=== PATIENT | male | born 1955 | race Caucasian/White ===

== ENCOUNTER 2018-03-20 11:55 | Inpatient (IN) | payer OTHER ==
[2018-03-20] MEDS ORDERED: NS 1000 ML 1,000 ML ONE (12:13)
[2018-03-20] MEDS ORDERED: MORPHINE SULFATE INJ 2 MG INJ IVP PRN (12:18)
[2018-03-20] MEDS ORDERED: CARDIZEM INJ 125 MG VIAL 125 MG in NS 100 ML IV 100 ML IV PRN (12:20)
[2018-03-20] MEDS ORDERED: HEPARIN SODIUM INJ 5000 UNITS ONE (12:33)
[2018-03-20] MEDS: HEPARIN SODIUM IN D5W 25,000 UNITS/500 ML BAG IV PRN (12:35)
[2018-03-20] MEDS ORDERED: HumuLIN R ONE (12:51)
[2018-03-20] MEDS: LOPRESSOR INJ 5 MG AMP IVP ONE ×4 (12:55→13:25)
[2018-03-20] MEDS ORDERED: LOPRESSOR INJ 5 MG AMP ONE (12:55)
[2018-03-20 12:57] LABS: BASOPHILS # (AUTO) 0.2 X10^3/uL (0.0-0.1); BASOPHILS % (AUTO) 2.9 % (0.2-1.0); EOSINOPHILS # (AUTO) 0.1 x10^3/uL (0.0-0.2); EOSINOPHILS % (AUTO) 1.3 % (0.9-2.9); HEMATOCRIT 42.4 % (42.0-54.0); HEMOGLOBIN 14.5 g/dL (13.5-18.0); LYMPHOCYTES # (AUTO) 1.8 X10^3/uL (1.3-2.9); LYMPHOCYTES % (AUTO) 28.2 % (21.0-51.0); MEAN CORPUSCULAR HEMOGLOBIN 29.9 pg (27.0-34.0); MEAN CORPUSCULAR HGB CONC 34.1 g/dL (33.0-35.0); MEAN CORPUSCULAR VOLUME 87.8 fL (80.0-100.0); MEAN PLATELET VOLUME 9.3 fL (7.4-11.0); MONOCYTES # (AUTO) 0.4 x10^3/uL (0.3-0.8); MONOCYTES % (AUTO) 6.7 % (0.0-13.0); NEUTROPHILS # (AUTO) 3.9 x10^3/uL (2.2-4.8); NEUTROPHILS % (AUTO) 60.9 % (42.0-75.0); PLATELET COUNT 183 X10^3/uL (150.0-450.0); RED BLOOD COUNT 4.83 X10^6/uL (4.7-6.0); RED CELL DISTRIBUTION WIDTH 13.5 % (11.6-16.5); WHITE BLOOD COUNT 6.4 X10^3/uL (3.6-10.0)
--- NOTE | 2018-03-20 13:04 | RAD ---
HISTORY: Shortness of breath and palpitations. Study: Portable chest. Comparison: None. Findings: The trachea is midline. The cardiac silhouette is unremarkable. No obvious focal consolidation, ple ural effusion, or pneumothorax. The bony thorax is unremarkable. IMPRESSION: No acute cardiopulmonary disease. Reported By:
[2018-03-20 13:08] LABS: ALANINE AMINOTRANSFERASE 20 Units/L (12-78); ALBUMIN 3.7 g/dL (3.4-5.0); ALKALINE PHOSPHATASE 89 Units/L (46-116); ASPARTATE AMINO TRANSFERASE 11 Units/L (15-37); BLOOD UREA NITROGEN 18 mg/dL (7-18); CALCIUM 8.1 mg/dL (8.5-10.1); CARBON DIOXIDE 25.1 mmol/L (21-32); CHLORIDE 109 mmol/L (98-107); CREATININE 1.22 mg/dL (0.70-1.30); SODIUM 144 mmol/L (136-145); TOTAL PROTEIN 6.9 g/dL (6.4-8.2); eGFR BLACK RACES > 60 (>60); eGFR NON BLACK RACES > 60 (>60)
[2018-03-20 13:09] VITALS: BMI 35.6
[2018-03-20 13:16] LABS: CKMB % 1.5 % (<4); CREATINE KINASE 68 Units/L (39-308); FREE T4 (FREE THYROXINE) 1.06 ng/dL (0.76-1.46); TROPONIN I < 0.02 ng/mL (0-1.5); TSH (3RD GENERATION) 2.716 uIU/mL (0.358-3.74)
--- NOTE | 2018-03-20 13:46 | DR.H&P ---
H&P - History & Physical for Day of: H&P Date: 03/20/18 - Chief Complaint Chief Complaint: palpitations, sob, near syncope - Allergies Allergies/Adverse Reactions: Allergies Allergy/AdvReac Type Severity Reaction Status Date / Time No Known Drug Allergies Allergy Verified 03/20/18 12:18 [NKDA] - History of Present Illness History of Present Illness: PT IS 62 WM DIRECT ADMIT FROM DR BALDWIN OFFICE AFTER PRESENTING WITH CO ELEVATED BP, PALPITATIONS AND NEAR SYNCOPE EPISODE. PT STATES SEVERAL DAYS AGO PT HAD SEVERE CENTRAL CHEST PAIN AND EPIGASTRIC PAIN "FELT LIKE SOMETHING SQUEEZING, PUT PRESSURE IN BOTH SIDES OF MY NECK AND I GRABBED A NEARBY TREE TO KEEP FROM FALL". PT FELT LIKE PALPITATIONS WAS STRESS AND ANXIETY RELATED. PT HAS PMH OF HTN, ERIN, MDD, AND OA. PT HAD EKG IN OFFICE WITH 2:1 AFLUTTER WITH RVR. PT WAS HYPERTENSIVE IN OFFICE. PT ADMITTED TO ICU FOR RATE CONTROL AND ANTICOAG THERAPY, DISCUSSED TRANSFER TO CARDIAC CATH. - Past Medical History Past Medical History: Anxiety, Arthritis, Hypertension - Past Surgical History Surgical History: Ortho Surgery, Other - Family History Family Medical History: ME, Hypertension - Social History Does patient currently use any type of tobacco product: No Have you used tobacco products in the last 12 months: No Type of Tobacco Use: None Does any household member use tobacco: No Alcohol Use: None Drug Use: None - Review of Systems Constitutional: Weakness Eyes: No Symptoms Reported ENT: No Symptoms Reported Respiratory: SOB with Excertion Cardiovascular: Palpitations, Edema, Light Headedness Genitourinary: No Symptoms Reported Musculoskeletal: Back Pain, Leg Pain Skin: No Symptoms Reported Neurological: Weakness - Physical Exam Vital Signs: Temperature 99.5 F Pulse Rate [Left Brachial] 130 Respiratory Rate 18 Blood Pressure [Right Arm] 140/110 Blood Pressure 159/103 O2 Sat by Pulse Oximetry 96 Oriented: Normal Eyes: Normal Ear: Normal Nose: Normal Throat: Normal Respiratory: Clear Throughout Cardiovascular: Tachycardia, Edema : Normal Auscultation: Bowel Sounds: Normal Palpation: Normal Tenderness: Normal Skin: Diaphoresis (MILDLY) Musculoskeletal: Right, Left, Knee, Back:Thoracic, Back:Lumbar Psychiatric: Anxiety Affect: Anxious Speech Pattern: Clear, Appropriate - Assessment/Plan (1) New onset atrial flutter Status: Acute Plan: ADMIT ICU, SERIAL CE'S EKG. RATE CONTROL, IV HEPARIN. BP MONITORING, SUPPLEMENTAL O2. CXR ON ADMISSION. VERIFY HOME MEDS, UA (2) New onset left bundle branch block (LBBB) Status: Acute (3) SOB (shortness of breath) Status: Acute (4) Hypertension Status: Acute (5) Anxiety Status: Acute (6) Arthritis Status: Acute
[2018-03-20] MEDS ORDERED: LOPRESSOR TAB 25 MG ONE (13:56)
[2018-03-20] MEDS: PROTONIX INJ 40 MG VIAL IVP SCH (14:00)
[2018-03-20] MEDS ORDERED: LOPRESSOR TAB 25 MG PO SCH (14:00)
[2018-03-20 17:17] LABS: BILIRUBIN,URINE NEGATIVE (NEGATIVE); BLOOD/HEMOGLOBIN,URINE NEGATIVE (NEGATIVE); GLUCOSE, URINE NEGATIVE (NEGATIVE); KETONES,URINE NEGATIVE (NEGATIVE); LEUKOCYTE ESTERASE ,URINE NEGATIVE (NEGATIVE); NITRITES,URINE NEGATIVE (NEGATIVE); PROTEIN,URINE NEGATIVE (NEGATIVE); UROBILINOGEN,URINE NORMAL (NORMAL)
[2018-03-20 17:21] LABS: APPEARANCE,URINE CLEAR (CLEAR); COLOR,URINE YELLOW (YELLOW)
[2018-03-20 18:36] LABS: CKMB % 1.8 % (<4); CREATINE KINASE 55 Units/L (39-308); CREATINE KINASE MB < 1.0 ng/mL (0-4.0); TROPONIN I < 0.02 ng/mL (0-1.5)
[2018-03-20] MEDS ORDERED: ATIVAN TAB 0.5 MG PO PRN (20:32)
[2018-03-20] MEDS ORDERED: NEXTERONE IV 150 MG PREMIX* 150 MG/100 ML BAG IV ONE (20:40)
[2018-03-20] MEDS ORDERED: NEXTERONE IV 360 MG PREMIX* 360 MG/200 ML BAG IV PRN (20:49)
[2018-03-20] MEDS ORDERED: DRUG FILTER EXTENSION SET ONE (21:12)
[2018-03-20] MEDS: LOPRESSOR TAB 50 MG PO SCH (21:30)
[2018-03-20] MEDS: CARDIZEM TAB 30 MG PLAIN PO SCH (21:50)
[2018-03-21 00:41] LABS: CREATINE KINASE 50 Units/L (39-308); CREATINE KINASE MB < 1.0 ng/mL (0-4.0); TROPONIN I < 0.02 ng/mL (0-1.5)
[2018-03-21] MEDS ORDERED: NEXTERONE IV 360 MG PREMIX* 360 MG/200 ML BAG IV PRN (02:49)
[2018-03-21] MEDS ORDERED: TYLENOL 325 MG TAB PO PRN (04:33)
[2018-03-21 04:40] LABS: ALANINE AMINOTRANSFERASE 17 Units/L (12-78); ALBUMIN 3.1 g/dL (3.4-5.0); ALKALINE PHOSPHATASE 77 Units/L (46-116); ASPARTATE AMINO TRANSFERASE 10 Units/L (15-37); BLOOD UREA NITROGEN 16 mg/dL (7-18); CALCIUM 7.6 mg/dL (8.5-10.1); CARBON DIOXIDE 26.7 mmol/L (21-32); CHLORIDE 107 mmol/L (98-107); CHOL/HDL RATIO 4.1 (0.0-5.0); CHOLESTEROL 120 mg/dL (0-200); COR CA(FOR HYPOALB) 8.3 mg/dL (8.5-10.1); CREATININE 1.29 mg/dL (0.70-1.30); HDL CHOLESTEROL 29 mg/dL (40-60); SODIUM 142 mmol/L (136-145); TRIGLYCERIDES 106 mg/dL (0-150); eGFR BLACK RACES > 60 (>60); eGFR NON BLACK RACES > 60 (>60)
[2018-03-21] MEDS: HEPARIN SODIUM IN D5W 25,000 UNITS/500 ML BAG IV PRN (04:44)
[2018-03-21 04:45] LABS: BASOPHILS # (AUTO) 0.2 X10^3/uL (0.0-0.1); BASOPHILS % (AUTO) 2.5 % (0.2-1.0); EOSINOPHILS # (AUTO) 0.2 x10^3/uL (0.0-0.2); EOSINOPHILS % (AUTO) 2.8 % (0.9-2.9); HEMATOCRIT 40.6 % (42.0-54.0); HEMOGLOBIN 13.8 g/dL (13.5-18.0); LYMPHOCYTES # (AUTO) 2.2 X10^3/uL (1.3-2.9); LYMPHOCYTES % (AUTO) 32.3 % (21.0-51.0); MEAN CORPUSCULAR HGB CONC 34.1 g/dL (33.0-35.0); MEAN PLATELET VOLUME 9.8 fL (7.4-11.0); MONOCYTES # (AUTO) 0.4 x10^3/uL (0.3-0.8); MONOCYTES % (AUTO) 6.2 % (0.0-13.0); NEUTROPHILS # (AUTO) 3.8 x10^3/uL (2.2-4.8); NEUTROPHILS % (AUTO) 56.2 % (42.0-75.0); PLATELET COUNT 183 X10^3/uL (150.0-450.0); RED BLOOD COUNT 4.61 X10^6/uL (4.7-6.0); RED CELL DISTRIBUTION WIDTH 13.2 % (11.6-16.5); WHITE BLOOD COUNT 6.8 X10^3/uL (3.6-10.0)
[2018-03-21] MEDS: CARDIZEM TAB 30 MG PLAIN PO SCH (06:48)
[2018-03-21] MEDS: LOPRESSOR TAB 50 MG PO SCH (08:19)
[2018-03-21] MEDS: PROTONIX INJ 40 MG VIAL IVP SCH (08:20)
[2018-03-21] MEDS ORDERED: COZAAR PO SCH (09:00)
[2018-03-21 10:15] VITALS: BP 123/78
== END 2018-03-21 10:44 | disposition short-term general hospital (02) | DRG 313 ==
LOC: EDBD 11:55 → ICU 11:55 → UNDOADMOB 11:55 → OBSVTOIN 12:00 → ICU 12:00
PROVIDERS: ADMIT Internal Medicine; ATTEND Internal Medicine
DX: R07.89 Other chest pain (principal); I44.7 Left bundle-branch block, unspecified; I48.92 Unspecified atrial flutter; R55 Syncope and collapse; I10 Essential (primary) hypertension; F41.8 Other specified anxiety disorders; M19.90 Unspecified osteoarthritis, unspecified site; Z79.01 Long term (current) use of anticoagulants
CPT/HCPCS: 36415; 71045; 80053; 80061; 81003; 82550; 82553; 83735; 84439; 84443; 84484; 85025; 85610; 85730; 93005; 93010; A4222; C9113; J1644; J1815; J3490